=== PATIENT | female | born 1960 | race Two or more races ===

== ENCOUNTER 2021-03-17 07:28 | Outpatient (CLI) | payer BC ==
[~2021-03-17 07:28] MED LIST: AMLO-150 PO; ASPI-963 PO; BIOT25005 PO; CHOL2000 PO; FENO43CA6 PO; GLYB5TAB3 PO; INSU100V8 SQ; LISI-170 PO; MECL-101 PO; MECL-85 PO; METF500T17 PO; MULT-717 PO; ROSU40TA PO; SITA1TAB5 PO
== END 2021-03-17 23:59 | disposition home or self-care (01) ==
LOC: CVU 07:28
PROVIDERS: ATTEND Internal Medicine
DX: I87.2 Venous insufficiency (chronic) (peripheral) (principal); I83.813 Varicose veins of bilateral lower extremities with pain
CPT/HCPCS: 93970